=== PATIENT | male | born 1980 | race Caucasian/White ===

== ENCOUNTER 2024-01-15 07:44 | Outpatient (CLI) | payer BC, SELFPAY ==
--- NOTE | 2024-01-15 09:04 | W.ANESCHARGE ---
Anesthesia Charges Start Date/Time Anesthesia Start Date: 01/15/24 Anesthesia Start Time: 08:11 Stop Date/Time Anesthesia Stop Date: 01/15/24 Anesthesia Stop Time: 09:01
--- NOTE | 2024-01-15 11:25 | W.ANESCHARGE ---
Anesthesia Charges Start Date/Time Anesthesia Start Date: 01/15/24 Anesthesia Start Time: 08:11 Stop Date/Time Anesthesia Stop Date: 01/15/24 Anesthesia Stop Time: 09:01
--- NOTE | 2024-01-15 11:26 | W.ANESCHARGE ---
Anesthesia Charges Start Date/Time Anesthesia Start Date: 01/15/24 Anesthesia Start Time: 08:11 Stop Date/Time Anesthesia Stop Date: 01/15/24 Anesthesia Stop Time: 09:01
== END 2024-01-15 07:45 | disposition home or self-care (01) ==
PROVIDERS: PCP Family Medicine; Visit Provider Internal Medicine Gastroenterology
DX: R19.7 Diarrhea, unspecified (principal); K63.5 Polyp of colon
CPT/HCPCS: 43239; 45380; 45385; 813; 88305; J2704

== ENCOUNTER 2024-07-11 12:48 | Outpatient (CLI) | payer BC, SELFPAY ==
--- NOTE | 2024-07-11 13:00 | MR_ITS ---
[facility] [address] [facility] [address] Phone:?[phone] Fax:?[phone] Referring Physician Information: Sam Marcano M.D. [address] [facility] [address] Phone:?[phone] Fax:?[phone] Patient:Rufino Claros D.O.B:?1980 Sex:?Male Phone:?[phone] [facility] MRN:?[id number] Exam Date:?07/11/2024 EXAM: MRI of the RIGHT SHOULDER, without contrast CLINICAL: Right shoulder pain. Evaluate for rotator cuff tear. COMPARISONS: X-rays dated 06/20/2024. TECHNICAL: Multiplanar multisequence MRI of the right shoulder was obtained. SEDATION: None. CONTRAST: None. FINDINGS: Rotator cuff: Supraspinatus/Infraspinatus: There is ill-defined high-grade near full-thickness to full-thickness tearing of the supraspinatus tendon superimposed upon moderate tendinosis as seen on coronal series 4 images 10-16. Mild tendinosis and mild partial tearing involving the insertional fibers of the distal infraspinatus tendon on coronal series 4 images 18-19. No significant fatty atrophy of the muscle bellies. Teres minor: There is moderate fatty infiltration of the muscle belly. No significant tendinosis or tendon tear. Subscapularis: Moderate tendinosis and minimal partial interstitial insertional tearing of the distal tendon. No significant fatty atrophy of the muscle belly. Bursae: Subacromial-subdeltoid: Mild bursal fluid. Subcoracoid: No significant bursal fluid. Coracoacromial arch: Acromion morphology: Type II. No os acromiale. Acromiohumeral space: Within normal limits. Coracohumeral space: Within normal limits. Biceps tendon, long head: Mild tendinosis of the intra-articular tendon. No significant tendon tear or displacement. Glenohumeral joint: Physiologic volume of joint fluid. Articular cartilage: No significant chondral loss. Capsule: No convincing evidence of capsular thickening or injury. Labrum: Evaluation is limited on this nonarthrogram examination. Mild ill-defined degenerative changes are seen to involve the superior labrum. The remainder of the labrum appears intact as visualized. No perilabral cyst identified. Bones: No suspicious marrow signal alteration, fracture or dislocation. Acromioclavicular joint: Moderate changes of arthrosis. No AC joint injury/widening. IMPRESSION: 1. Ill-defined high-grade near full-thickness to full-thickness tearing of the supraspinatus tendon superimposed upon moderate tendinosis. Mild tendinosis/partial tearing involving the insertional fibers of the distal infraspinatus tendon with moderate tendinosis and minimal partial interstitial tearing of the distal subscapularis tendon. 2. Mild tendinosis of the intra-articular long head biceps tendon. 3. Mild ill-defined degenerative changes involving the superior labrum. 4. Moderate AC joint arthrosis. JCZ Electronically signed on 07/11/2024 3:28:00 PM by Bentley Ahumada D.O.
== END 2024-07-11 12:49 | disposition home or self-care (01) ==
PROVIDERS: PCP Family Medicine; Visit Provider Orthopaedic Surgery
DX: M25.511 Pain in right shoulder (principal); M75.101 Unspecified rotator cuff tear or rupture of right shoulder, not specified as traumatic; M19.011 Primary osteoarthritis, right shoulder; S49.91XA Unspecified injury of right shoulder and upper arm, initial encounter
CPT/HCPCS: 73221

== ENCOUNTER 2024-07-26 06:06 | Day surgery (SDC) | payer BC, SELFPAY ==
[2024-07-26] VITALS (13 sets, daily range): BP systolic 120–155; BP diastolic 82–109; PULSE 54–75; RESP 14–20; TEMP 36.1–36.8; O2SAT 90–97; BMI 32.3
--- OUTSIDE RECORDS SUMMARY | 2024-07-26 06:08 | XMS_ITS | Clinical Summary ---
Author Organization [facility] Address [place], [place] [address] Care Team Providers Care Dry Wall Nailer Name Role Phone Jaylene Crowley DO Primary Care Provider [phone] Allergies Active Allergy Reactions Criticality Noted Date Comments Codeine GI Upset 01/09/2013 Medications Medication Sig Dispensed Refills Start Date End Date Status CPAPIndications:O bstructive sleep apnea CPAP machine for home use at pressure: 5-16 CM H20 , Heated humidifier x 1, Humidifier chamber x 1, Full face mask with cushion x 1, Heated tubing x 1, Headgear x 1, Filters: Disposable x 1pk & Reusable x 1pk, Length of Need: 99 months, Frequency of use: Daily 1 Device 11 02/09/2018 Active inhalational spacing deviceIndications :Chronic obstructive pulmonary disease, unspecified COPD type (HC) For home use. 1 Each 04/11/2022 Active sertraline (ZOLOFT) 100 mg tabletIndications :Adjustment disorder with mixed anxiety and depressed mood Take 1 Tablet (100 mg) by mouth once daily. 90 Tablet 1 02/17/2024 Active amLODIPine (NORVASC) 5 mg tabletIndications :HTN (hypertension) Take 1 Tablet (5 mg) by mouth once daily. 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 90 Tablet 4 04/05/2024 Active albuterol HFA (PRO-AIR; VENTOLIN; PROVENTIL) 90 mcg/actuation inhalerIndication s:History of COVID-19,Chronic obstructive pulmonary disease, unspecified COPD type (HC) Inhale 1-2 Puffs by mouth every 4 hours if needed for Shortness of Breath 2 Each 6 04/13/2024 Active meloxicam 15 mg tabletIndications :Carpal tunnel syndrome of left wrist Take 1 Tablet (15 mg) by mouth once daily. 30 Tablet 2 06/10/2024 Active polyethylene glycol-electrolyt e (GOLYTELY) 236-22.74-6.74 -5.86 gram suspensionIndicat ions:Encounter for screening colonoscopy Drink 2 liters the day before the procedure and 2 liters 6 hours prior to procedure. 4000 mL 10/11/2024 07/19/2024 Discontinue d(*Med complete/Re gimen complete/Le sally of care change) Active Problems Problem Noted Date Diagnosed Date Colon polyp 01/17/2024 Overview: Colonoscopy 12/2023 3-TA,SSA, repeat in 5 years Chronic obstructive pulmonary disease 05/01/2021 MAURIZIO, 01/30/18, AHI 46.7 04/03/2018 Alcohol use disorder, moderate, dependence 02/10 Current episode of major dep ressive disorder without prior episode 07/20/2015 Adjustment disorder with mixed anxiety and depre ssed mood 05/04/2015 Tobacco use 05/04/2015 Kaminski's esophagus 03/15/2013 Overview: EGD 01/2013 Kaminski's, repeat EGD in 2 years EGD 04/2015 Kaminski's, repeat EGD in 3 years EGD 08/2018 Kaminski's, repeat EGD in 3 years EGD 12/2023 no Kaminski's, possible bowel celiac, recommend celiac testing and repeat EGD in 5 years Encounters Date Type Department Care Team Description 07/19/2024 11:30 AM CDT Office Visit [facility] [address] [place] [address] Jaylene Crowley, Preoperative Exam (rotator cuff surgery right 07/26/24/Dr. Marcano, [facility]) 07/19/2024 Travel 07/11/2024 Orders Only [facility] Scanner 1 scan: (1-Ord) [facility], SHOULDER RT WO CON, 07/11/2024 06/26/2024 Telephone [facility] [address] [place] [address] Uzma Chaney DO Results 06/25/2024 9:58 AM CDT - 06/25/2024 11:59 PM CDT Hospital Encounter [facility] EMG/EEG/EP [address] [address] Uzma Chaney DO Beck, Elizabeth Haule, MD Prelesnik, Jane D Carpal tunnel syndrome of left wrist 06/25/2024 Travel 06/10/2024 1:20 PM CDT Office Visit [facility] [address] [place] [address] Salas Polk MD Musculoskeletal Problem (Consult left hand carpal tunnel per Dr. Gunner Chaney) 06/10/2024 Travel 05/06/2024 10:10 AM CDT Office Visit [facility] [address] [place] [address] Uzma Chaney DO Hand Pain/problem (LEFT - x2 weeks - no injury - difficulty bending it or making a fist ) 05/06/2024 Travel from Last 3 Months Immunizations Name Administration Dates Next Due AMB Influenza, IIV4 PF (=>6 mos Flulaval,Fluzone Fluarix)(Flu Clinic Only) 08/22/2019 Influenza, IIV4 08/28/2020,09/03/2018 Td (Age >=7 Years) 04/05/2024 Tdap 04/09/2014 Family History Medical History Relation Name Comments Asthma Father Cancer Father kidney cancer Relation Name Status Comments Father Social History Tobacco Use Types Packs/Day Years Used Date Smoking Tobacco: Every Day Cigarettes 1 20 Smokeless Tobacco: Never Tobacco Cessation:Ready to Q uit: No; Counseling Given: Yes Alcohol Use Standard Drinks/Week Comments Yes 0 (1 standard drink = 0.6 oz pur e alcohol) few a day PHQ-2 Answer Date Recorded PHQ-2 TOTAL SCORE 2 11/25/2022 Social Connections Answer Date Recorded Frequency of Communication with Friends and Fami ly 0 04/05/2024 Financial Resource Strain Answer Date R ecorded Difficulty of Paying Living Expenses 3 04/05/2024 Difficulty of Paying Living Expenses Not on file 04/05/2024 Food Insecurity Answer Date Recorded Worried About Running Out of Food in the Last Ye ar 1 04/05/2024 Transportation Needs Answer Date Record ed Lack of Transportation (Medical) 1 04/05/2024 Housing Stability Answer Date Recorded Unable to Pay for Housing in the Last Year 1 04/05/2024 Sex and Gender Information Value Date Recorded Sex Assigned at Not on file Gender Identity Not on file Sexual Orientation Not on file Obstetrics History Last Filed Vital Signs Vital Sign Reading Time Taken Comments Blood Pressure 133/96 07/19/2024 11:43 AM CDT Pulse 79 07/19/2024 11:43 AM CDT Temperature 36.8 ??C (98.3 ??F) 07/19/2024 1 1:46 AM CDT Respiratory Rate 20 04/05/2021 8:09 AM CDT Oxygen Saturation 98% 07/19/2024 11: 43 AM CDT Inhaled Oxygen Concentration - - Weight 111.3 kg (245 lb 6.4 oz) 024 11:43 AM CDT Height 185.4 cm (6' 1) 05/06/2024 10:1 1 AM CDT Body Mass Index 32.38 05/06/2024 10:11 AM CDT Plan of Treatment Upcoming Encounters Date Type Department Care Team (Late st Contact Info) Description 08/15/2024 2:40 PM CDT Office Visit [facility] [address] [place] [address] Salas Polk MD [address] [place] [address] Health Maintenance Due Date Last Done Comments Pneumococcal series for age 6-64 (1 of 2 - PCV) 1986 Depression screening for age 12+ 11/25/2023 11/25/2022, 10/27/2021, 08/28/2020, Additional history exists COVID-19 vaccine series ( - 2022-24 season) 2024 Influenza for age 9-49 07/21/2024 , 08/22/2019, 09/03/2018 BMI (ht and wt on same day) for age 18+ 05/06/2025 05/06/2024, 08/26/2021, 04/29/2021, Additional history exists Lipids for age 35-44 08/28/2025 08/28/2020, 05/08/20 15 Colonoscopy through age 75 01/15/2029 01/15/2024, Tetanus booster 04/05/2034 04/05/2024, 04/09/2014 Tdap Completed 04/09/2014 HIV for age 15-65 Completed 04/05/2024 Hepatitis C screening for ag e 18-79 Completed 04/05/2024 Procedures Procedure Name Priority Date/Time Associated Diagnosis Comments BASIC METABOLIC PANEL Routine 07/19/2024 12:21 PM CDT Pre-op exam HEMOGLOBIN Routine 07/19/2024 12:21 PM CDT Pre-op exam SCAN-MRI INTERPRETATION 07/11/2024 12:00 AM CDT EMG Routine 06/25/2024 Carpal tunnel syndrome of left wrist ANTI HIV 1/2 Add On 04/05/2024 12:45 PM CDT Screening for HIV (human immunodeficiency virus) ANTI HCV Add On 04/05/2024 12:45 PM CDT Need for hepatitis C screening test COLONOSCOPY DIAGNOSTIC Routine 01/15/2024 8:03 AM ELL TUTOR Acute diarrhea LIPID PANEL W REFLEX MEASURED LDL Routine 08/28/2020 9:41 AM CDT Screening cholesterol level from Last 3 Months or Most Recently Relevant to Health Maintenance Results * HEMOGLOBIN (07/19/2024 12:21 PM CDT) HEMOGLOBIN 16.4 13.5 - 17.5 g/dL 07/19/2024 12:28 PM CDT [facility] MCV 94 80 - 100 fL 07/19/2024 12:28 PM CDT [facility] Blood BLOOD SPECIMEN / Unknown Venipuncture / Unknown 07/19/2024 12:21 PM CDT 07/19/2024 12:22 PM CDT Jaylene Cortez Jaxont DO HEMATOLOGY [facility] [address] [place] [address], * BASIC METABOLIC PANEL (07/19/2024 12:21 PM CDT) SODIUM 138 136 - 145 mmol/L 07/19/2024 11:01 PM CDT [facility] POTASSIUM 4.7 3.5 - 5.1 mmol/L 07/19/2024 11:01 PM CDT [facility] CHLORIDE 102 98 - 107 mmol/L 07/19/2024 11:01 PM CDT [facility] CO2,TOTAL 24 22 - 29 mmol/L 07/19/2024 11:01 PM CDT [facility] ANION GAP 12 5 - 18 07/19/2024 11:01 PM CDT [facility] GLUCOSE 99 70 - 99 mg/dL 07/19/2024 11:01 PM CDT [facility] CALCIUM 10.0 8.6 - 10.0 mg/dL 07/19/2024 11:01 PM CDT [facility] BUN 19 6 - 20 mg/dL 07/19/2024 11:01 PM CDT [facility] CREATININE 1.04 0.70 - 1.20 mg/dL 07/19/2024 11:01 PM T [facility] BUN/CREAT RATIO 18 10 - 20 11:01 PM CDT [facility] eGFR >90 >90 mL/min/1.7 3m2 07/19/2024 11:01 PM T [facility] Comment:As of 2022, eG FR is calculated by the CKD-EPI creatinine equation without race adjustment. ??eGFR can be influenced by muscle mass, exercise, and diet. ??The reported eGFR is an estimation only and is only applicable if the renal function is stable. Blood BLOOD SPECIMEN / Unknown Venipuncture / Unknown 07/19/2024 12:21 PM CDT 07/19/2024 12:22 PM CDT Jaylene Crowley DO CHEMISTRY Performing Organization Address [facility] Co de Phone Number [facility] [address] [place] [phone], [place] * SCAN-MRI INTERPRETATION (07/11/2024 12:00 AM CDT) Anatomical Region Laterality Modality Other Scanner OTHER * EMG (06/25/2024) Uzma Chaney DO NEUROLOGY ORD * ANTI HCV (04/05/2024 12:45 PM CDT) HEPATITIS C ANTIBODY Non-Reacti ve Non-React sherwin 04/05/2024 9:55 PM CDT [facility] Comment:Please note, per www .CDC.gov: If a patient is known to be at high risk of HCV infection, or is symptomatic, and the physician's suspicion of HCV infection is high, HCV RNA testing is often employed and is of diagnostic value, even after an initial negative anti-HCV test result. Blood BLOOD SPECIMEN / Unknown Venipuncture / Unknown 04/05/2024 12:45 PM CDT 04/05/2024 12:45 PM CDT Jaylene Crowley DO SEND OUTS Performing Organization Address [facility] Co de Phone Number [facility] [address] [place] [address], [place] * ANTI HIV 1/2 [14200.0] (04/05/2024 12:45 PM CDT) HIV-1/HIV-2 SCREEN Non-Reacti ve Non-Reacti ve 04/05/2024 9:55 PM CDT [facility] Comment:HIV-1 p24 and HIV-1/ HIV-2 Ab Not Detected. Blood BLOOD SPECIMEN / Unknown Venipuncture / Unknown 04/05/2024 12:45 PM CDT 04/05/2024 12:45 PM CDT Jaylene Crowley DO SEND OUTS [facility] [address] [place] [address], [place] * SCAN-COLONOSCOPY (01/15/2024 12:00 AM ELL TUTOR) Scanner OTHER * (ABNORMAL) LIPID PANEL W REFLEX MEASURED LDL (08/28/2020 9:41 AM CDT) CHOLESTEROL,TOTAL 179 100 - 199 mg/dL 08/28/2020 7:04 PM CDT [facility] TRIGLYCERIDES 180(H) <150 mg/dL 08/28/2020 7:04 PM CDT [facility] HDL CHOLESTEROL 53 >40 mg/dL 0 7:04 PM CDT [facility] NON-HDL CHOLESTEROL 126 <145 mg/dl 08/28/2020 7:04 PM CDT [facility] CHOL/HDL RATIO 3.38 <4.50 08/28/2020 7:04 PM CDT [facility] LDL CHOLESTEROL 90 <=130 mg/dL 08/28/2020 7:04 PM CDT [facility] PROVIDER ORDERED STATUS RANDOM 08/28/2020 7:04 PM CDT [facility] Blood BLOOD SPECIMEN / Unknown Venipuncture / Unknown 08/28/2020 9:41 AM CDT 08/28/2020 9:41 AM CDT Jaylene Crowley DO CHEMISTRY [facility] [address] [place] [address], [place] from Last 3 Months or Most Recently Relevant to Health Maintenance Care Teams Dry Wall Nailer Relationship Specialty Start Date End Date Jaylene Crowley DO [address] [place] [address] PCP - General Family Practice 11/23/11
--- OUTSIDE RECORDS SUMMARY | 2024-07-26 06:08 | XMS_ITS | Clinical Summary ---
Author Organization [facility] Address [address] [place] [address] Care Team Providers Care Trimming Machine Operator Name Role Phone No Primary/Referring, Phy Primary Care Provider Unavailable Source Comments You are receiving this document as you are listed as the primary care provider,follow-up provider, or the patient has been referred to you for consultation.This is in compliance with the Medicare and[facility] EHR Incentive Program,which states Providers who transition their patient to another setting of careor provider of care or refers their patient to another provider of care shouldprovide summary care record for each transition of care or referral. [facility] Allergies No known active allergies Medications Medication Sig Dispensed Refills Start Date End Date Status famotidine (PEPCID) 40 MG tablet Take 1 Tablet (40 mg) by mouth daily. 06/18/2022 Active sertraline (ZOLOFT) 100 MG tablet Take 1 Tablet (100 mg) by mouth daily. 11/25/[address] (PROTONIX) 40 MG tablet Take 1 Tablet (40 mg) by mouth daily. 06/18/2022 Active methocarbamol (ROBAXIN) 500 MG tablet Take 1 Tablet (500 mg) by mouth every 6 hours as needed. 30 Tablet 12/09/2022 Active sennosides-docusat e sodium (SENOKOT S) 8.6-50 MG per tablet Take 2 Tablets by mouth two times daily as needed for Constipation (No stool in the last day). 20 Tablet 12/09/2022 Active oxyCODONE (ROXICODONE) 5 MG immediate release tablet Take 1-2 Tablets (5-10 mg) by mouth every 4 hours as needed for Pain. 30 Tablet 12/09/[address] (PROTONIX) 40 MG tablet Take 1 Tablet (40 mg) by mouth daily before breakfast. 09/20/2022 Active Active Problems Problem Noted Date Diagnosed Date Rib pain on right side 10/20/2022 Overview (10/20/2022): Added automatically from request for surgery [id number] Social History Tobacco Use Types Packs/Day Years Used Date Smoking Tobacco: Every Day Cigarettes Tobacco Cessation:Ready to Q uit: Not Asked; Counseling Given: Not Answered Alcohol Use Standard Drinks/Week Comments Yes 0 (1 standard drink = 0.6 oz pur e alcohol) Sex and Gender Information Value Date Recorded Sex Assigned at Not on file Gender Identity Not on file Sexual Orientation Not on file Last Filed Vital Signs Vital Sign Reading Time Taken Comments Blood Pressure 123/77 12/09/2022 3:16 PM CUSTOMER ACQUISITION MANAGER Pulse 70 12/09/2022 3:16 PM CUSTOMER ACQUISITION MANAGER Temperature 36.4 ??C (97.5 ??F) 12/09/2022 3:16 PM CS T Respiratory Rate 18 12/09/2022 3:16 PM CUSTOMER ACQUISITION MANAGER Oxygen Saturation 97% 12/09/2022 3:16 PM CUSTOMER ACQUISITION MANAGER Inhaled Oxygen Concentration - - Weight 115.7 kg (255 lb) 06/12/2023 12:59 PM CDT Height 185.4 cm (6' 1) 06/12/2023 12:59 PM CDT Body Mass Index 33.64 06/12/2023 12:59 PM CDT Plan of Treatment Health Maintenance Due Date Last Done Comments Hep C Screening (Preventive Services) 1980 MTM Covered 1980 Pneumococcal (1 - PCV) 1986 HIV Screening (Preventive Services) 1996 Adult Preventive Visit 1998 HepB (1) 1999 Cholesterol 2015 DTaP/Tdap/Td (2 - Tdap) 04/09/2024 04/09/2014 COVID-19 Vaccine ( - 2022-2 4 season) 2024 Influenza (#1) 2024 08/28/2020, 08/22/2019, 09/03/2018 Zoster/Shingles (1 of 2) 2030 HPV Vaccine Aged Out No longer eligi ble based on patient's age to complete this topic HepA Aged Out No longer eligi ble based on patient's age to complete this topic Hib Aged Out No longer eligi ble based on patient's age to complete this topic IPV (Polio) Aged Out No longer eligi ble based on patient's age to complete this topic MCV4 Aged Out No longer eligi ble based on patient's age to complete this topic Medical Devices Implanted Type Area Journeyman Plumber Device Identifier Shelf Expiration Date Model / Serial / Lot Bone Kay Plus Dbm 1cc - [id number] Implanted:Qty: 1 on 12/08/2022 at [facility] BIOLOGIC Right: RIB Med[employer]onic - [employer] 09/03/2024 [id number] / [id number] / Plt Matrix Ti Rib Uni 8h - [id number] Implanted:Qty: 1 on 12/08/2022 by Luis Eduardo Rehman MD at [facility] DEVICE Right: RIB DePuy Synthes - CMF .501.009 / / Scr Lk Matrixrib Sfdr 2.7x9 - [id number] Implanted:Qty: 6 on 12/08/2022 by Luis Eduardo Rehman MD at [facility] DEVICE Right: RIB DePuy Synthes - CMF .501.209 .01 / / Scr Lk Matrixrib Sfdr 2.7x10 - [id number] Implanted:Qty: 1 on 12/08/2022 by Luis Eduardo Rehman MD at [facility] DEVICE Right: RIB DePuy Synthes - CMF .501.210 .01 / / Scr Lk Matrixrib Sfdr 2.7x11 - [id number] Implanted:Qty: 1 on 12/08/2022 by Luis Eduardo Rehman MD at [facility] DEVICE Right: RIB DePuy Synthes - CMF ..211 .01 / / Plt Rib Reduction Gallito 12mm - [id number] Implanted:Qty: 1 on 12/08/2022 by Luis Eduardo Rehman MD at [facility] DEVICE DePuy Synthes - Synthes Spine [id number] / / Advance Directives * Full Code (Latest Code Status on File) Date Activated Date Inactivated Comments 12/08/2022 5:37 AM 12/09/2022 6:45 PM Care Teams Trimming Machine Operator Relationship Specialty Start Date End Date No Primary/Referring, Sneha PCP - General 08/15/22
[2024-07-26] MEDS: EPINEPHrine 1 MG in SODIUM CHLORIDE IRRIG SOLUTION 3,000 ML 9003 MG IRRIGATION ×6 (06:30→09:40)
[2024-07-26] MEDS: LACTATED RINGERS 1000 ML 1,000 ML 100 ML IV ×2 (06:50→09:32)
[2024-07-26] MEDS: SODIUM CHLORIDE 0.9 % (FLUSH) 10 ML SYRINGE IVF (06:59)
[2024-07-26] MEDS: MIDAZOLAM HCL 1 MG/ML inj IVP (07:19)
[2024-07-26] MEDS: fentaNYL 100 MCG/2 ML inj IVP (07:19)
--- NOTE | 2024-07-26 07:21 | W.PM.H&PU ---
History & Physical Update History & Physical Update H&P Reviewed and patient assessed: No changes noted
--- NOTE | 2024-07-26 07:22 | P.ORPRC_ITS ---
Procedure Note Date of procedure: 07/26/24 Procedure: PREOPERATIVE DIAGNOSES: 1. Right shoulder rotator cuff tear. 2. Right acromioclavicular joint osteoarthritis. POSTOPERATIVE DIAGNOSES: 1. Right shoulder rotator cuff tear - (supraspinatus and upper subscapularis) 2. Right acromioclavicular joint osteoarthritis NAME OF OPERATION: 1. Right shoulder arthroscopic rotator cuff repair. 2. Right shoulder arthroscopic distal clavicle excision. 3. Right shoulder arthroscopic subacromial decompression and bursectomy. SURGEON: Gregg Marcano MD FURNACE ATTENDANT: Renee Young P.A.-C.. An assistant professor of psychology was critical for this case to aide in patient positioning, suture manipulation, arm positioning, instrument positioning, and closure. ANESTHESIA: General plus preoperative supraclavicular block. IMPLANTS: Arthrex 4.75 BioComposite SwiveLock anchor x1; Arthrex 2.6 knotless FiberTak anchor x1; Arthrex 2.6 FiberTak anchor x1; Arthrex 4.75 mm BioComposite knotless SwiveLock anchor x2 COMPLICATIONS: None ESTIMATED BLOOD LOSS: 10 mL INDICATIONS: The patient is a 44-year-old male who sustained injury to his right shoulder which resulted in pain and weakness. Physical exam and imaging were consistent with a rotator cuff tear. Given these findings, as well as the weakness and pain, and failure to improve with nonoperative management, recommendation was made for surgery. FINDINGS: Exam under anesthesia revealed stable shoulder with full range of motion. The diagnostic arthroscopy revealed mild chondromalacia of the glenoid with normal-appearing cartilage of the humeral head. Anterior, posterior, and superior labrum were intact. Biceps tendon was normal in appearance and was intact. There was tear of the upper subscapularis. Full-thickness tear of the majority of the supraspinatus with minimal retraction. Infraspinatus was intact. No loose bodies were identified within the pouch or subscapularis recess. PROCEDURE: Following a thorough discussion of risks, benefits, and alternatives, consent was obtained and the operative shoulder was marked. A supraclavicular nerve block was performed by anesthesia staff in preop holding. The patient was brought to the operating room and placed supine on the operating table. Induction of anesthesia was completed, and patient was given IV Ancef preoperatively for prophylaxis. A surgical time-out was performed confirming patient identity, surgical site, and procedure. Patient was placed into the beach chair position. Head was placed in padded head of research & insights in neutral alignment, and all bony prominences were well padded. The operative shoulder and upper extremity were prepped and draped in the appropriate sterile fashion using ChloraPrep. The glenohumeral joint was injected with 40 mL of normal saline using and 18g spinal needle from a posterior approach. Posterior portal was established. Anterior portal was established after localization with a spinal needle and a 7.0 mm cannula was placed here. Diagnostic arthroscopy was then performed with findings as noted above. Attention was 1st directed to the subscapularis. Frayed subscapularis tendon was debrided with motorized shaver. The footprint of the upper subscapularis was debrided of soft tissue and lightly decorticated with the bone-cutting shaver. A FiberLink suture was then passed through the upper portion of the subscapularis and secured into a knotless SwiveLock anchor. The knotless suture was also passed through the upper subscapularis tensioned and remnant sutures were cut and removed. After completion, the subscapularis was noted to be securely fixed in anatomic fashion back to its footprint. Attention then directed to the cyst supraspinatus tear. Undersurface of the supraspinatus was debrided of frayed cuff tissue. The camera was then moved into the subacromial space. A lateral portal established after localization with spinal needle. Subacromial bursectomy was performed using combination of the arthroscopic shaver and radiofrequency ablator. Partial acromioplasty was performed using the bone-cutting shaver removing moving anterior bone spur. There was noted be full-thickness tear of the supraspinatus which was retracted medially less than a cm. Supraspinatus was easily mobilized to its footprint. The footprint was debrided of soft tissue using the radiofrequency ablator and the footprint was lightly decorticated using the bone-cutting shaver. A passport cannula was then placed into the lateral portal. Two 2.6 mm FiberTak anchors were then placed into the anterior medial and posterior medial aspects of the supraspinatus footprint after making small stab incisions on the lateral aspect of the acromion. Once these anchors had been secured in position. A FiberLink suture was passed through the supraspinatus tendon lateral to the musculotendinous junction using a scorpion suture Passer. FiberLink suture was then used to shuttle sutures through the cuff tissue. Medial row repair was then performed using the knotless sutures. Lateral row repair was then performed by placing two 4.75 mm BioComposite knotless SwiveLock anchors lateral to the supraspinatus footprint. Both sets of sutures incorporated FiberTape from the previously placed medial row anchors. Anteriorly there was a dog ear which was repaired using knotless suture. After sutures were tension, anchors were secured into position, remnant sutures were cut and removed. The cuff was then inspected was noted to be securely fixed to its footprint in anatomic position. Attention was then directed to the distal clavicle excision. A 70 degree scope was placed into the lateral portal and used to visualize the the acromioclavicular joint. AC joint was debrided of soft tissue using the radiofrequency ablator. Distal clavicle excision was then performed using the arthroscopic bur. Bur was used to create a space of approximately 1 cm between the distal clavicle and the acromion. Seventy scope confirm complete removal of the posterior and superior aspects of the distal clavicle. Excess fluid was then drained from the subacromial space. Cannulas and instruments were removed from the shoulder. Portal sites were closed with 3-0 nylon simple interrupted sutures and sterile dressings were applied. Arm was then placed into an abduction sling. Patient was rotated back in a supine position woken from anesthesia and transferred to the PACU in stable condition. PLAN: 1. Discharged to home day of surgery. 2. Ice for pain and swelling. 3. Tylenol and oxycodone as needed for pain control. 4. Abduction sling at all times except for ROM and showering. -Remove sling several times daily for pendulum exercises finger, wrist, and elbow range of motion. 5. Follow-up in orthopedic clinic in 10-14 days for wound check and suture removal. 6. Will initiate formal physical therapy 2 weeks postoperatively per the standard rotator cuff repair protocol.
--- NOTE | 2024-07-26 07:27 | SUR.PREOP ---
TIME?OUT:?18, right shoulder PT/RN/MDA?VERIFICATION?OF?SURGICAL?SITE,?PROCEDURE,?AND?CONSENT OBTAINED?PRIOR?TO?INVASIVE?PROCEDURE.
[2024-07-26] MEDS: CEFAZOLIN 2 GM INJ IVP (07:39)
--- NOTE | 2024-07-26 09:04 | W.ANESCHARGE ---
Anesthesia Charges Start Date/Time Anesthesia Start Date: 07/26/24 Anesthesia Start Time: 07:30 Stop Date/Time Anesthesia Stop Date: 07/26/24 Anesthesia Stop Time: 10:46
--- NOTE | 2024-07-26 09:04 | W.PM.NB ---
Nerve Block Nerve Block Time Seen by Provider: 08:22 Date Seen: 07/26/24 Type of block requested by surgeon for post-operative analgesia: supraclavicular Side: right Time out performed: Yes Verification of patient name: Yes Verification of date of : Yes Site marking: site marked Name of person performing procedure: Nelson Continuous monitoring Was continuous monitoring of O2 sat, B/P, phototypesetting equipment monitor, recorded every 15 minutes?: Yes Procedure Checklist: sterile prep, needles and gloves Ultrasound guided. Images saved: Yes Medications given in 5ml increments after negative aspiration: Ropivicaine %: 0.5 mL: 20 Needle gauge: 22 Decadron (mg): 10 Precedex (mcg): 25 Patient tolerated procedure well: Yes Block Charges Block Charge (with Pro Fee): Brachial Plexus Use of Ultrasound Machine for Block: Yes- US Guidance/pain block
[2024-07-26] MEDS: EPINEPHrine 1 MG in SODIUM CHLORIDE IRRIG SOLUTION 3,000 ML 4000 MG IRRIGATION (10:17)
[2024-07-26] MEDS: ONDANSETRON 2 MG/ML inj 4 MG IVP (10:50)
--- NOTE | 2024-07-26 10:51 | W.ANESCHARGE ---
Anesthesia Charges Start Date/Time Anesthesia Start Date: 07/26/24 Anesthesia Start Time: 07:30 Stop Date/Time Anesthesia Stop Date: 07/26/24 Anesthesia Stop Time: 10:46
[2024-07-26] MEDS: fentaNYL 100 MCG/2 ML inj 50 MCG IVP ×2 (10:52→10:59)
--- NOTE | 2024-07-26 11:20 | SUR.PHASEI ---
patient met discharge criteria per anesthesia
[2024-07-26] MEDS: OxyCODONE/APAP 5-325 TABLET PO (11:53)
== END 2024-07-26 12:39 | disposition home or self-care (01) ==
PROVIDERS: PCP Family Medicine; Visit Provider Orthopaedic Surgery
PROC: (CPT 29805; principal; 2024-07-26 07:30)
DX: S46.011A Strain of muscle(s) and tendon(s) of the rotator cuff of right shoulder, initial encounter (principal); M19.011 Primary osteoarthritis, right shoulder; G89.18 Other acute postprocedural pain
CPT/HCPCS: 29827; 29826; 29824; 01630; 64415; 76942; A9270; C1713; J0171; J0330; J0690; J1100; J2250; J2371; J2405; J2704; J2795; J3010; J7120; L3670

== ENCOUNTER 2024-10-15 15:00 | Outpatient (RCR) | payer BC, SELFPAY ==
--- NOTE | 2024-07-28 10:35 | PM.ANPOST ---
Post Anesthesia Note Post Anesthesia Note Patient seen: Inpatient Respiratory Status: adequate Cardiovascular Status: adequate Mental Status: baseline Pain: adequate Temp: baseline Anesthetic awareness: N/A Complications: none Follow care: none
== END 2024-11-21 11:59 | disposition home or self-care (01) ==
PROVIDERS: PCP Family Medicine; Visit Provider Orthopaedic Surgery
DX: Z98.890 Other specified postprocedural states (principal); R53.1 Weakness; Z51.89 Encounter for other specified aftercare
CPT/HCPCS: 97110; 97140; 97161

== ENCOUNTER 2025-03-11 12:08 | Outpatient (CLI) | payer BC, SELFPAY | END 2025-03-11 12:09 | disposition home or self-care (01) | PROVIDERS: PCP Family Medicine; Visit Provider Nurse Practitioner | DX: R06.02 Shortness of breath (principal); R07.9 Chest pain, unspecified | CPT/HCPCS: 84484; 85379 ==

== ENCOUNTER 2025-04-03 11:23 | Emergency (ER) | payer BC, SELFPAY ==
[2025-04-03 11:36] VITALS: BP 140/102; PULSE 88; RESP 22; TEMP 35.9; O2SAT 96; BMI 33.5
--- OUTSIDE RECORDS SUMMARY | 2025-04-03 17:40 | XMS_ITS | Clinical Summary ---
Author Organization [facility] Address [address] [place] [id number] Care Team Providers Care Rack Cleaner Name Role Phone Jaylene Crowley DO Primary Care Provider Allergies Active Allergy Reactions Criticality Noted Date Comments Codeine GI Upset 01/09/2013 Medications CPAPIndications: Obstructive sleep apnea CPAP machine for home use at pressure: 5-16 CM H20 , Heated humidifier x 1, Humidifier chamber x 1, Full face mask with cushion x 1, Heated tubing x 1, Headgear x 1, Filters: Disposable x 1pk & Reusable x 1pk, Length of Need: 99 months, Frequency of use: Daily 1 Device 11 8 Active inhalational spacing deviceIndication s:Chronic obstructive pulmonary disease, unspecified COPD type (HC) For home use. 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 90 Tablet 4 4 Active albuterol HFA (PRO-AIR; VENTOLIN; PROVENTIL) 90 mcg/actuation inhalerIndicatio ns:History of COVID-19,Chronic obstructive pulmonary disease, unspecified COPD type (HC) Inhale 1-2 Puffs by mouth every 4 hours if needed for Shortness of Breath 2 Each 6 4 Active meloxicam 15 mg tabletIndication s:Carpal tunnel syndrome of left wrist Take 1 Tablet (15 mg) by mouth once daily. 30 Tablet 2 4 Active amLODIPine (NORVASC) 5 mg tabletIndication s:HTN (hypertension) TAKE ONE TABLET BY MOUTH ONE TIME DAILY 90 Tablet 1 5 Active sertraline 100 mg tabletIndication s:Adjustment disorder with mixed anxiety and depressed mood TAKE ONE TABLET BY MOUTH ONE TIME DAILY 90 Tablet 5 Active Active Problems Problem Noted Date Diagnosed Date Colon polyp 01/17/2024 Overview (01/17/2024): Colonoscopy 12/2023 3-TA,SSA, repeat in 5 years Chronic obstructive pulmonary disease 05/01/2021 MAURIZIO, 01/30/18, AHI 46.7 04/03/2018 Alcohol use disorder, moderate, dependence 02/10 Current episode of major dep ressive disorder without prior episode 07/20/2015 Adjustment disorder with mixed anxiety and depre ssed mood 05/04/2015 Tobacco use 05/04/2015 Kaminski's esophagus 03/15/2013 Overview (01/17/2024): EGD 01/2013 Kaminski's, repeat EGD in 2 years EGD 04/2015 Kaminski's, repeat EGD in 3 years EGD 08/2018 Kaminski's, repeat EGD in 3 years EGD 12/2023 no Kaminski's, possible bowel celiac, recommend celiac testing and repeat EGD in 5 years Encounters Date Type Department Care Team Description 02/22/2025 Refill [facility] [address] [place] [address] Jaylene Crowley, Refill Request (Sertraline) 01/04/2025 Refill [facility] [address] [place] [address] Jaylene Crowley, DO Refill Request (Amlodipine) from Last 3 Months Immunizations Immunization Administration Dates Next Due AMB Influenza, IIV4 [...] PHQ-2 Answer Date Recorded PHQ-2 TOTAL SCORE 3 08/22/2024 Social Connections Answer Date Recorded Do you often feel lonely or isolated from those around you? 0 04/05/2024 Financial Resource Strain Answer Date R ecorded Difficulty of Paying Living Expenses 3 04/05/2024 Difficulty of Paying Living Expenses Not on file 04/05/2024 Food Insecurity Answer Date Recorded Do you worry your food will run out before you are able to buy more? 1 04/05/2024 Transportation Needs Answer Date Record ed Does lack of transportation keep you from medica l appointments? 1 04/05/2024 Does lack of transportation keep you from work, meetings or getting things that you need? 1 04/05/2024 Housing Stability Answer Date Recorded What is your housing situation today? 1 04/05/2024 Utilities Answer Date Recorded Do you have trouble paying f or utilities (for example, heat, electricity, water, phone)? 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 Gender Identity Not on file Sexual Orientation Not on file Obstetrics History Last Filed Vital Signs Vital Sign Reading Time Taken Comments Blood Pressure 133/96 07/19/2024 11:43 AM CDT Pulse 79 07/19/2024 11:43 AM CDT Temperature 36.8 C (98.3 F) 07/19/2024 11:46 AM CDT Respiratory Rate 20 04/05/2021 8:0 9 AM CDT Oxygen Saturation 98% 07/19/2024 11: 43 AM CDT Inhaled Oxygen Concentration - - Weight 111.3 kg (245 lb 6.4 oz) 024 11:43 AM CDT Height 185.4 cm (6' 1) 05/06/2024 10:1 1 AM CDT Body Mass Index 32.38 05/06/2024 10:11 AM CDT Plan of Treatment Upcoming Encounters Date Type Department Care Team (Late st Contact Info) Description 04/16/2025 4:20 PM CDT Office Visit [facility] [address] [place] [address] Jaylene Crowley DO [address] [place] [address] Health Maintenance Due Date Last Done Comments Pneumococcal series for age 6-49 (1 of 2 - PCV) 1999 COVID-19 vaccine series (2023- season) 2024 BMI (ht and wt on same day) for age 18+ 05/06/2025 05/06/2024, 08/26/2021, 04/29/2021, Additional history exists Influenza Vaccine (Season Ended) 2025 08/28/2020, 08/22/2019, 09/03/2018 Depression screening for age 12+ 08/22/2025 08/22/20 24 Lipids for age 35-44 08/28/2025 08/28/2020, 05/08/20 15 Colonoscopy through age 75 01/15/2029 01/15/2024, Tetanus booster 04/05/2034 04/05/2024, 04/09/2014 Tdap Completed 04/09/2014 HIV for age 15-65 Completed 04/05/2024 Hepatitis C screening for ag e 18-79 Completed 04/05/2024 Procedures Procedure Name Priority Date/Time Associated Diagnosis Comments ANTI HIV 1/2 Add On 04/05/2024 12:45 PM CDT Screening for HIV (human immunodeficiency virus) ANTI HCV Add On 04/05/2024 12:45 PM CDT Need for hepatitis C screening test SCAN-COLONOSCOPY 01/15/2024 12:0 0 AM CHEMICAL ENGINEERING PROFESSOR LIPID PANEL W REFLEX MEASURED LDL Routine 08/28/2020 9:41 AM CDT Screening cholesterol level from Last 3 Months or Most Recently Relevant to Health Maintenance Results * ANTI HCV (04/05/2024 12:45 PM CDT) Pathologist [facility] [place] HEPATITIS C ANTIBODY Non-Reacti ve Non-React sherwin 04/05/2024 9:55 PM CDT [facility] Comment:Please note, per www [...] 12:45 PM CDT 04/05/2024 12:45 PM CDT us Jaylene Coatest DO SEND OUTS Final Resul t Performing Organization Address City/[facility]/ZIP Co de Phone Number [facility] [address] [place] [phone], [place] * ANTI HIV 1/2 [10042.0] (04/05/2024 12:45 PM CDT) Pathologist [facility] [place] HIV-1/HIV-2 SCREEN Non-Reacti ve Non-Reacti ve 04/05/2024 9:55 PM CDT [facility] Comment:HIV-1 p24 and HIV-1/ HIV-2 Ab Not Detected. Blood BLOOD SPECIMEN / Unknown Venipuncture / Unknown 04/05/2024 12:45 PM CDT 04/05/2024 12:45 PM CDT us Jaylene Coatest DO SEND OUTS Final Resul t Performing Organization Address City/[facility]/ZIP Co de Phone Number [facility] [address] [place] [phone], [place] * SCAN-COLONOSCOPY (01/15/2024 12:00 AM CHEMICAL ENGINEERING PROFESSOR) us Scanner OTHER Final Result * (ABNORMAL) LIPID PANEL W REFLEX MEASURED LDL (08/28/2020 9:41 AM CDT) CHOLESTEROL,TOTAL 179 100 - 199 mg/dL 08/28/2020 7:04 PM CDT [facility] TRIGLYCERIDES 180(H) <150 mg/dL 08/28/2020 7:[address] [facility] HDL CHOLESTEROL 53 >40 mg/dL 0 7:04 PM CDT [facility] NON-HDL CHOLESTEROL 126 <145 mg/dl 08/28/2020 7:04 PM CDT [facility] CHOL/HDL RATIO 3.38 <4.50 08/28/2020 7:[address] [facility] LDL CHOLESTEROL 90 <=130 mg/dL 08/28/2020 7:[address] [facility] PROVIDER ORDERED STATUS RANDOM 08/28/2020 7:04 PM CDT [facility] Blood BLOOD SPECIMEN / Unknown Venipuncture / Unknown 08/28/2020 9:41 AM CDT 08/28/2020 9:41 AM CDT us Jaylene Coatest DO CHEMISTRY Final Resul t [facility] [address] [place] [address], [place] from Last 3 Months or Most Recently Relevant to Health Maintenance [facility] Care Teams Rack Cleaner Relationship Specialty Start Date End Date Jaylene Crowley DO [address] [place] [address] PCP - General Family Practice 11/23/11
== END 2025-04-03 13:36 | disposition left against medical advice (07) ==
LOC: ED 13:34
PROVIDERS: Emergency Provider Family Medicine; PCP Family Medicine
DX: Z53.21 Procedure and treatment not carried out due to patient leaving prior to being seen by health care provider (principal)
CPT/HCPCS: 99281

== ENCOUNTER 2025-04-04 09:56 | Emergency (ER) | payer BC, SELFPAY ==
--- OUTSIDE RECORDS SUMMARY | 2025-04-04 09:59 | XMS_ITS | Clinical Summary ---
Author Organization [facility] Address [address] [place] [address] Care Team Providers Care Power Chisel Operator Name Role Phone No Primary/Referring, Phy Primary Care Provider Unavailable Source Comments You are receiving this document as you are listed as the primary care provider,follow-up provider, or the patient has been referred to you for consultation.This is in compliance with the Medicare andBar[facility] Centercame EHR Incentive Program,which states Providers who transition their patient to another setting of careor provider of care or refers their patient to another provider of care shouldprovide summary care record for each transition of care or referral. [facility] Allergies No known active allergies Medications famotidine (PEPCID) 40 MG tablet Take 1 Tablet (40 mg) by mouth daily. 2 Active sertraline (ZOLOFT) 100 MG tablet Take 1 Tablet (100 mg) by mouth daily. [address] (PROTONIX) 40 MG tablet Take 1 Tablet (40 mg) by mouth daily. 2 Active methocarbamol (ROBAXIN) 500 MG tablet Take 1 Tablet (500 mg) by mouth every 6 hours as needed. 30 Tablet 12/09/2022 3:46 PM MANAGER STATISTICAL 3 Active sennosides-docu sate sodium (SENOKOT S) 8.6-50 MG per tablet Take 2 Tablets by mouth two times daily as needed for Constipation (No stool in the last day). 20 Tablet 12/09/2022 3:46 PM MANAGER STATISTICAL 3 Active oxyCODONE (ROXICODONE) 5 MG immediate release tablet Take 1-2 Tablets (5-10 mg) by mouth every 4 hours as needed for Pain. 30 Tablet 12/09/2022 3:46 PM MANAGER STATISTICAL [address] (PROTONIX) 40 MG tablet Take 1 Tablet (40 mg) by mouth daily before breakfast. 2 Active Active Problems Problem Noted Date Diagnosed Date Rib pain on right side 10/20/2022 Overview (10/20/2022): Added automatically from request for surgery [id number] Social History Tobacco Use Types Packs/Day Years Used Date Smoking Tobacco: Every Day Cigarettes Tobacco Cessation:Ready to Q uit: Not Asked; Counseling Given: Not Answered Alcohol Use Standard Drinks/Week Comments Yes 0 (1 standard drink = 0.6 oz pur e alcohol) Sex and Gender Information Value Date Recorded Sex Assigned at Not on file Legal Sex Male 8:20 AM CDT Gender Identity Not on file Sexual Orientation Not on file Last Filed Vital Signs Vital Sign Reading Time Taken Comments Blood Pressure 123/77 12/09/2022 3:16 PM MANAGER STATISTICAL Pulse 70 12/09/2022 3:16 PM MANAGER STATISTICAL Temperature 36.4 C (97.5 F) 12/09/2022 3:16 PM MANAGER STATISTICAL Respiratory Rate 18 12/09/2022 3:16 PM MANAGER STATISTICAL Oxygen Saturation 97% 12/09/2022 3:16 PM MANAGER STATISTICAL Inhaled Oxygen Concentration - - Weight 115.7 kg (255 lb) 06/12/2023 12:59 PM CDT Height 185.4 cm (6' 1) 06/12/2023 12:59 PM CDT Body Mass Index 33.64 06/12/2023 12:59 PM CDT Plan of Treatment Health Maintenance Due Date Last Done Comments Hep C Screening (Preventive Services) 1980 HIV Screening (Preventive Services) 1996 Adult Preventive Visit 1998 HepB Vaccine (1) 1999 Pneumococcal Vaccine (1 of 2 - PCV) 1999 Cholesterol 2015 DTaP/Tdap/Td Vaccine (2 - Tdap) 04/09/2024 04/09/2014 COVID-19 Vaccine (1 - 2023-2 5 season) 2024 Influenza Vaccine (Season Ended) 2025 08/28/2020, 08/22/2019, 09/03/2018 Zoster/Shingles Vaccine (1 o f 2) 2030 HPV Vaccine Aged Out No longer eligi ble based on patient's age to complete this topic HepA Vaccine Aged Out No longer eligi ble based on patient's age to complete this topic Hib Vaccine Aged Out No longer eligi ble based on patient's age to complete this topic IPV (Polio) Vaccine Aged Out No longe r eligible based on patient's age to complete this topic MCV4 Vaccine Aged Out No longer eligi ble based on patient's age to complete this topic Meningococcal B Vaccine Aged Out No l onger eligible based on patient's age to complete this topic Medical Devices Implanted Type Area Telephone Directory Deliverer Device Identifier Shelf Expiration Date Model / Serial / Lot Bone Leslie Plus Dbm 1cc - [id number] Implanted:Qty: 1 on 12/08/2022 at [facility] BIOLOGIC Right: RIB Med[employer] - [employer] 09/03/2024 [id number] / [id number] / Plt Matrix Ti Rib Uni 8h - [id number] Implanted:Qty: 1 on 12/08/2022 by Luis Eduardo Rehman MD at [facility] DEVICE Right: RIB DePuy Synthes - CMF .501.009 / / Scr Lk Matrixrib Sfdr 2.7x9 - [id number] Implanted:Qty: 6 on 12/08/2022 by Luis Eduardo Rehman MD at [facility] DEVICE Right: RIB DePuy Synthes - CMF [id number] .01 / / Scr Lk Matrixrib Sfdr 2.7x10 - [id number] Implanted:Qty: 1 on 12/08/2022 by Luis Eduardo Rehman MD at [facility] DEVICE Right: RIB DePuy Synthes - CMF [id number] .01 / / Scr Lk Matrixrib Sfdr 2.7x11 - [id number] Implanted:Qty: 1 on 12/08/2022 by Luis Eduardo Rehman MD at [facility] DEVICE Right: RIB DePuy Synthes - CMF 04.501.211 .01 / / Plt Rib Reduction Gallito 12mm - [id number] Implanted:Qty: 1 on 12/08/2022 by Luis Eduardo Rehman MD at [facility] DEVICE DePuy Synthes - Synthes Spine [id number] / / Insurance [facility] Advance Directives * Full Code (Latest Code Status on File) Date Activated Date Inactivated Comments 12/08/2022 5:37 AM 12/09/2022 6:45 PM Care Teams Power Chisel Operator Relationship Specialty Start Date End Date No Primary/Referring, Antonioy PCP - General 08/15/22
--- OUTSIDE RECORDS SUMMARY | 2025-04-04 09:59 | XMS_ITS | Clinical Summary ---
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 Gender Identity Not on file Sexual Orientation Not on file Obstetrics History Last Filed Vital Signs Vital Sign Reading Time Taken Comments Blood Pressure 133/96 07/19/2024 11:43 AM CDT Pulse 79 07/19/2024 11:43 AM CDT Temperature 36.8 C (98.3 F) 07/19/2024 11:46 AM CDT Respiratory Rate 20 04/05/2021 8:09 [...] Description 04/16/2025 4:20 PM CDT Office Visit [facility] [address] [place] [address] Jaylene Crowley DO [address] [place] [address] Health Maintenance Due Date Last Done Comments Pneumococcal series for age 6-49 (1 of 2 - PCV) 1999 COVID-19 vaccine series (1 - 2023- season) 2024 BMI (ht and wt on [...] screening test SCAN-COLONOSCOPY 01/15/2024 12:0 0 AM 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 LIPID PANEL W REFLEX MEASURED LDL Routine 08/28/2020 9:41 AM CDT Screening cholesterol level from Last 3 Months or Most Recently Relevant to Health Maintenance Results * ANTI HCV (04/05/2024 12:45 PM CDT) [facility] HEPATITIS C ANTIBODY Non-Reacti ve Non-React sherwin 04/05/2024 9:55 PM CDT [facility] Comment:Please note, per www [...] PM CDT Jaylene Crowley DO SEND OUTS Final Resul t Performing Organization Address [facility]/ZIP Co de Phone Number [facility] [address] [place] [id number], [place] * ANTI HIV 1/2 [[id number]] (04/05/2024 12:45 PM CDT) [facility] HIV-1/HIV-2 SCREEN Non-Reacti ve Non-Reacti ve 04/05/2024 9:55 PM CDT [facility] Comment:HIV-1 p24 and HIV-1/ HIV-2 Ab Not Detected. Blood BLOOD SPECIMEN / Unknown Venipuncture / Unknown 04/05/2024 12:45 PM CDT 04/05/2024 12:45 PM CDT Jaylene Crowley DO SEND OUTS Final Resul t Performing Organization Address City/[facility]/ZIP Co de Phone Number [facility] 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) Scanner OTHER Final Result * (ABNORMAL) LIPID PANEL W REFLEX MEASURED LDL (08/28/2020 9:41 AM CDT) [facility] CHOLESTEROL,TOTAL 179 100 - 199 mg/dL 08/28/2020 7:04 PM CDT [facility] TRIGLYCERIDES 180(H) <150 mg/dL 08/28/2020 7:04 PM CDT [facility] HDL CHOLESTEROL 53 >40 mg/dL 0 7:04 PM CDT [facility] NON-HDL CHOLESTEROL 126 <145 mg/dl 08/28/2020 7:04 PM CDT [facility] CHOL/HDL RATIO 3.38 <4.50 08/28/2020 7:04 PM CDT [facility] LDL CHOLESTEROL 90 <=130 mg/dL 08/28/2020 7:04 PM CDT [facility] PROVIDER ORDERED STATUS RANDOM 08/28/2020 7:04 PM CDT [facility] Blood BLOOD SPECIMEN / Unknown Venipuncture / Unknown 08/28/2020 9:41 AM CDT 08/28/2020 9:41 AM CDT us Jaylene Crowley DO CHEMISTRY Final Resul t [facility] [address] [place] [address], from Last 3 Months or Most Recently Relevant to Health Maintenance Insurance Care Teams Collector Of Internal Revenue Relationship Specialty Start Date End Date Jaylnee Crowley DO [place] [address] [place] [id number] PCP - General Family Practice 11/23/11
[2025-04-04 10:10] VITALS: BP 157/111; PULSE 87; RESP 24; TEMP 36.5; O2SAT 98; BMI 33.9
--- NOTE | 2025-04-04 10:58 | ED_ITS ---
HPI - General Adult General Chief complaint: Shortness of Breath/Dyspnea Stated complaint: Hard time breathing Time Seen by Provider: 04/04/25 10:58 History of Present Illness HPI narrative: Patient reports shortness of breath with chest pain at times that has been on- going for a few weeks . Reports being seen in urgent care had a bunch of tests was given steroids. Symptoms have not improved. Patient does reports not taking Amlodipine for a few weeks due to being out of prescription . 44-year-old man presenting to the emergency department with concern of shortness of breath. This is intermittent and increase in the associated with minor exertion but certainly with going up and downstairs. Sometimes though just trying to roll over in bed he can feel short of breath. With this shortness of breath can also feel some tightness in his chest demonstrating just a little right of sternum. He did last night just try using his albuterol inhaler every hour and then thought maybe that was helping. Symptoms are not always associated with wheeze but that has been present. He does have a diagnosis while back of some early stages of COPD he says. He also has sleep apnea but can not tolerate the CPAP. Last night he just woke gasping sleep. History of hypertension as well and most recently has been out of his amlodipine. Does have an appointment in 12 days with primary care provider to review a number of things. He just was worried that should get checked out; wondering if he needed to do anything in the interim. He has actually been struggling with the shortness of breath maybe over the last few months. He was off for 6 weeks due to rotator cuff repair. Admittedly gained 15-20 lb and has lost a little bit of that since going back to work in December or November. Symptoms are not associated with lightheadedness or sense of palpitations/ rapid heart rate. Does continue to smoke. 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 Review of record notes COPD. Does not sound as though is being treated specifically for COPD. Seen in urgent care about 3 weeks ago and received some lab work ultimately diagnosed with bronchitis. Negative D-dimer and troponin and that workup normal hemoglobin. Given doxycycline for a week along with 5 days of prednisone. Chest x-ray and EKG were also done which were were unremarkable Related Data Home Medications ?Medication ?Instructions ?Recorded ?Confirmed albuterol sulfate 90 mcg/actuation 1 inh inhalation 06/20/24 03/11/25 aerosol inhaler famotidine 40 mg tablet 40 mg PO DAILY 06/20/24 04/04/25 meloxicam 15 mg tablet 15 mg PO DAILY 06/20/24 04/04/25 pantoprazole 40 mg tablet,delayed 40 mg PO DAILY 06/20/24 04/04/25 release sertraline 100 mg tablet 100 mg PO DAILY 06/20/24 04/04/25 amlodipine 5 mg tablet 5 mg PO DAILY 07/15/24 04/04/25 Previous Rx's ?Medication ?Instructions ?Recorded acetaminophen 500 mg capsule 500 mg PO Q6H PRN #60 caps 07/26/24 amlodipine 5 mg tablet 5 mg PO DAILY #30 tabs 04/04/25 Allergies Allergy/AdvReac Type Severity Reaction Status Date / Time codeine Allergy GI upset Verified 04/03/25 11:39 Review of Systems Status of ROS: Reports: 6 or more systems reviewed and unremarkable except as noted in History and below [facility] Medical History MAURIZIO (obstructive sleep apnea) ?G47.33 - Obstructive sleep apnea (adult) (pediatric) (ICD-10) Alcohol use disorder, moderate, dependence ?F10.20 - Alcohol dependence, uncomplicated (ICD-10) Adjustment disorder with mixed anxiety and depressed mood ?F43.23 - Adjustment disorder with mixed anxiety and depressed mood (ICD-10) COPD (chronic obstructive pulmonary disease) ?J44.9 - Chronic obstructive pulmonary disease, unspecified (ICD-10) 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 - Kaminski's esophagus without dysplasia (ICD-10) Surgical History Rotator cuff tear arthropathy of right shoulder (~07/26/24) ?M75.101 - Unspecified rotator cuff tear or rupture of right shoulder, not specified as traumatic (ICD-10) ?M12.811 - Other specific arthropathies, not elsewhere classified, right shoulder (ICD-10) History of meniscectomy of right knee ?Z98.890 - Other specified postprocedural states (ICD-10) History of meniscectomy of left knee ?Z98.890 - Other specified postprocedural states (ICD-10) Social History Smoking Status: Current every day smoker How many standard drinks containing alcohol do you have on a typical day: 10 or more AUDIT-C Alcohol total score: 4 Non-prescribed substance use: denies use Caffeine: Yes Exam Narrative: Exam Narrative: Pleasant. NAD. Gravelly voice. Skin is warm dry. Extremities are without edema. There is no JVD. Heart is little distant but regular rate and rhythm without murmur rub or gallop. Lungs are clear. Abdomen is soft. Overweight. Const: Vital Signs, click to edit/add: Vital Signs - 24 hr 04/04/25 10:10 Temperature 97.7 F Pulse Rate [Pulse Oximeter] 87 Respiratory Rate 24 Blood Pressure [Ri ght Upper Arm] 157/111 H Pulse Oximetry 98 Documenting provider has reviewed patient's vital signs: yes Course Vital Signs Vital signs: Initial Vital Signs Temperature 97.7 F 04/04/25 10:10 Temperature Source Temporal Artery Scan 04/04/25 10:10 Pulse Rate 87 04/04/25 10:10 Respiratory Rate 24 04/04/25 10:10 Blood Pressure 157/111 H 04/04/25 10:10 Blood Pressure Mean 126 H 04/04/25 10:10 Pulse Oximetry 98 04/04/25 10:10 Vital Signs Temperature 97.7 F 04/04/25 10:10 Pulse Rate 87 04/04/25 10:10 Respiratory Rate 24 04/04/25 10:10 Blood Pressure 157/111 H 04/04/25 10:10 Pulse Oximetry 98 04/04/25 10:10 Temperature 97.7 F 04/04/25 10:10 Pulse Rate 87 04/04/25 10:10 Respiratory Rate 24 04/04/25 10:10 Blood Pressure 157/111 H 04/04/25 10:10 Pulse Oximetry 98 04/04/25 10:10 Medical Decision Making MDM Narrative Medical decision making narrative: Do have concerns about cardiac status. Does need further cardiac evaluation with echocardiogram. Untreated sleep apnea, untreated COPD, inadequately treated hypertension, nicotine dependence. All of this certainly could be contributing to his symptoms. Possibly even with allergies contributing during this time of heavy pollen count? Discussed with colleague here today. He does not have diagnosis of asthma but does have albuterol inhaler. Untreated COPD is an issue. I do not think will tolerate treadmill given his description so will attempt Lexiscan as outpatient. Then close follow-up with primary care provider. I do not think that have more to offer in the emergent setting right now. Is asymptomatic otherwise. See patient discharge plan for further discussion We are scheduling a stress test for you. Anticipate having this information ahead of your appointment with your primary care provider. You certainly have a number of things to discuss at that appointment. I think you also need formal function test and treatment of what appears to be COPD. I am sending in a refill prescription of your amlodipine. Sort of sorry to say this again, do what you can to quit smoking. See quit plan information included here. Be seen sooner, return for marked increase in persistent shortness of breath independent of exertion, persistent chest pain. Medical Records Medical records reviewed: Yes I reviewed the patient's medical records Discharge Plan Discharge Clinical Impression: Exertional dyspnea, Hypertension, Nicotine dependence, Sleep apnea, COPD (chronic obstructive pulmonary disease) Patient Disposition: Home, Self-Care Condition: Stable Additional Instructions: We are scheduling a stress test for you. Anticipate having this information ahead of your appointment with your primary care provider. You certainly have a number of things to discuss at that appointment. I think you also need formal function test and treatment of what appears to be COPD. I am sending in a refill prescription of your amlodipine. Sort of sorry to say this again, do what you can to quit smoking. See quit plan information included here. Be seen sooner, return for marked increase in persistent shortness of breath ind ependent of exertion, persistent chest pain. Prescriptions: New amlodipine 5 mg tablet 5 mg PO DAILY Qty: 30 0RF No Action sertraline 100 mg tablet 100 mg PO DAILY pantoprazole 40 mg tablet,delayed release (DR/EC) 40 mg PO DAILY albuterol sulfate 90 mcg/actuation HFA aerosol inhaler 1 inh inhalation famotidine 40 mg tablet 40 mg PO DAILY meloxicam 15 mg tablet 15 mg PO DAILY amlodipine 5 mg tablet 5 mg PO DAILY acetaminophen 500 mg capsule 500 mg PO Q6H PRNQty: 60 0RF Follow Up/Referrals: Jaylene Crowley DO [Primary Care Provider] - Stand Alone Forms: MyHealth Info Instructions
== END 2025-04-04 12:02 | disposition home or self-care (01) ==
PROVIDERS: Emergency Provider Family Medicine; PCP Family Medicine
DX: R06.09 Other forms of dyspnea (principal); I10 Essential (primary) hypertension; F17.210 Nicotine dependence, cigarettes, uncomplicated; G47.30 Sleep apnea, unspecified; J44.9 Chronic obstructive pulmonary disease, unspecified; Z79.899 Other long term (current) drug therapy
CPT/HCPCS: 96374; 96375; 99284